=== PATIENT | female | born 1975 | race Caucasian/White ===

== ENCOUNTER → 2017-08-09 | Outpatient (CLI) | payer BC ==
--- NOTE | 2017-08-09 15:48 | RADIOLOGY REPORT (SQ) ---
EXAM DESCRIPTION: MRI LUMBAR SPINE WITHOUT COMPLETED DATE/TIME: 08/09/2017 2:57 pm REASON FOR STUDY: INTERVERTEBRAL DISC DISORDER; LUMBAR REGION (M51.16) M51.16 INTERVERTEBRAL DISC D ISORDERS W RADICULOPATHY, LUMBAR COMPARISON: None. TECHNIQUE: Sagittal and Axial imaging includes T1, T2, STIR and gradient echo sequences. Coronal T2/ HASTE imaging. LIMITATIONS: None. FINDINGS: VISUALIZED UPPER ABDOMEN: Limited evaluation. No acute or suspicious findings suggested. SEGMENTATION: No transitional anatomy. The lowest well-developed disc space is labeled L5-S1. ALIGNMENT: Anatomic. VERTEBRAE: Intact. BONE MARROW: Reactive endplate changes L5-S1. DISC SIGNAL: Loss of height and T2 signal L5-S1. POSTERIOR ELEMENTS: Generally intact. No pars defect evident. HARDWARE: None in the spine. CORD AND CONUS: Normal in size and signal intensity. Conus at the appropriate level. SOFT TISSUES: No aortic aneurysm seen. No bulky retroperitoneal adenopathy or mass. No paraspinal mas s or fluid. L1-L2: No significant spinal stenosis or exit foraminal stenosis. L2-L3: No significant spinal stenosis or exit foraminal stenosis. L3-L4: No significant spinal stenosis or exit foraminal stenosis. L4-L5: No significant spinal stenosis or exit foraminal stenosis. L5-S1: Large central disc extrusion L5-S1. Deviation of the intrathecal S1 roots and posterior so ening of the cord. LOWER THORACIC: Incompletely imaged. No stenosis seen. SACRUM: Visualized upper sacrum intact. OTHER: No other significant findings. IMPRESSION: Large central disc extrusion L5-S1 with deviation of the intrathecal S1 roots in posteri or flattening of the cord. TECHNICAL DOCUMENTATION: JOB ID: [id number] [employer]- All Rights Reserved
== END ==
LOC: RAD 14:08
PROVIDERS: ATTEND Physician Assistant
DX: M51.16 Intervertebral disc disorders with radiculopathy, lumbar region (principal)
CPT/HCPCS: 72148

== ENCOUNTER 2017-12-13 05:30 | Day surgery (SDC) | payer BC ==
[2017-12-06 09:57] LABS: ABSOLUTE EOSINOPHILS # (AUTO) 0.3 10^3/uL (0.0-0.6); ABSOLUTE LYMPHOCYTES (AUTO) 1.4 10^3/uL (0.5-4.7); ABSOLUTE MONOCYTES (AUTO) 0.6 10^3/uL (0.1-1.4); ABSOLUTE NEUT (AUTO) 4.8 10^3/uL (1.7-8.2); BASOPHILS % (AUTO) 0.6 % (0-2); EOSINOPHILS % (AUTO) 4.1 % (0-6); HEMATOCRIT 41.2 % (36.0-47.0); HEMOGLOBIN 14.2 g/dL (12.0-15.5); LYMPHOCYTES % (AUTO) 19.6 % (13-45); MEAN CORPUSCULAR HEMOGLOBIN 28.4 pg (27.0-33.4); MEAN CORPUSCULAR HGB CONC 34.4 g/dL (32.0-36.0); MEAN CORPUSCULAR VOLUME 83 fl (80-97); MONOCYTES % (AUTO) 8.4 % (3-13); PLATELET COUNT 351 10^3/uL (150-450); RED BLOOD COUNT 4.99 10^6/uL (3.72-5.28); RED CELL DISTRIBUTION WIDTH 12.7 % (11.5-14.0); SEGMENTED NEUTROPHILS % (AUTO) 67.3 % (42-78); TOTAL CELLS COUNTED % (AUTO) 100 %; WHITE BLOOD COUNT 7.1 10^3/uL (4.0-10.5)
[2017-12-06 10:23] LABS: ALANINE AMINOTRANSFERASE 39 U/L (9-52); ALBUMIN 4.3 g/dL (3.5-5.0); ALKALINE PHOSPHATASE 76 U/L (38-126); ANION GAP 10 (5-19); ASPARTATE AMINO TRANSFERASE 20 U/L (14-36); BILIRUBIN,DIRECT 0.4 mg/dL (0.0-0.4); BILIRUBIN,TOTAL 0.4 mg/dL (0.2-1.3); BLOOD UREA NITROGEN 17 mg/dL (7-20); CALCIUM 9.8 mg/dL (8.4-10.2); CARBON DIOXIDE 27 mmol/L (22-30); CHLORIDE 102 mmol/L (98-107); GLUCOSE 156 mg/dL (75-110); POTASSIUM 4.8 mmol/L (3.6-5.0); SODIUM 139.2 mmol/L (137-145); TOTAL PROTEIN 7.6 g/dL (6.3-8.2)
--- NOTE | 2017-12-06 11:04 | EKG REPORT ---
SEVERITY:- BORDERLINE ECG - SINUS RHYTHM BORDERLINE LEFT AXIS DEVIATION LOW VOLTAGE THROUGHOUT : Confirmed by: Felecia Cruz 06-Dec-2017 11:03:40
[~2017-12-13 05:30] MED LIST: CEFAZOLIN SODIUM 2 GM in NORMAL SALINE 100 ML IV PRN; LACTATED RINGERS 1000 ML IV PRN; LIDOCAINE 0.5% INJ-PF (5 MG/ML) 50 ML SDV SUBCUT PRN; NORMAL SALINE 1000 ML (RENAL PATIENTS) IV PRN
[2017-12-13] MEDS ORDERED: BACITRACIN INJ 50,000 UNIT VIAL ONE (06:37)
[2017-12-13] MEDS ORDERED: BUPIVACAINE INJ/PF LIPOSOME/PF 266 MG/20 ML SDV ONE (06:37)
[2017-12-13] MEDS ORDERED: FENTANYL CITRATE INJ/PF 250 MCG/5 ML AMPULE ONE ×2 (06:42→06:44)
[2017-12-13] MEDS ORDERED: DEXAMETHASONE SOD PHOSPHATE INJ 4 MG/1 ML VIAL ONE (06:42)
[2017-12-13] MEDS ORDERED: ONDANSETRON HCL INJ/PF 4 MG/2 ML SDV ONE (06:42)
[2017-12-13] MEDS ORDERED: MIDAZOLAM 2 MG/2 ML INJ ONE (06:42)
[2017-12-13] MEDS ORDERED: ACETAMINOPHEN 100 ML IV ONE (06:43)
[2017-12-13] MEDS ORDERED: PROPOFOL INJ 200 MG/20 ML VIAL IV ONE (06:43)
[2017-12-13] MEDS ORDERED: BUPIVACAINE HCL 0.5 % INJ/PF 30 ML SDV ONE (08:02)
[2017-12-13] MEDS ORDERED: MEPERIDINE HCL/PF INJ 25 MG/1 ML DISP.SYRIN IV PRN (08:03)
[2017-12-13] MEDS ORDERED: ONDANSETRON HCL INJ/PF 4 MG/2 ML SDV IV PRN (08:03)
[2017-12-13] MEDS ORDERED: DIPHENHYDRAMINE HCL 50 MG/ML VIAL IV PRN (08:03)
[2017-12-13] MEDS ORDERED: PROMETHAZINE HCL INJ 25 MG/1 ML VIAL IV PRN (08:03)
[2017-12-13] MEDS ORDERED: FENTANYL CITRATE INJ/PF 100 MCG/2 ML AMPUL IV PRN ×3 (08:03)
[2017-12-13] MEDS: FENTANYL CITRATE INJ/PF 100 MCG/2 ML AMPUL ONE ×2 (09:35→09:45)
[2017-12-13] MEDS ORDERED: PROMETHAZINE HCL INJ 25 MG/1 ML VIAL ONE (09:48)
[2017-12-13] MEDS ORDERED: DIPHENHYDRAMINE HCL 50 MG/ML VIAL ONE (10:07)
[2017-12-13] MEDS ORDERED: METHOCARBAMOL 1,000 MG in DEXTROSE 5%-WATER 100 ML IV ONE (10:30)
[2017-12-13] MEDS ORDERED: OXYCODONE-ACETAMINOPHEN 5-325 MG TABLET ONE (10:35)
--- NOTE | 2017-12-13 10:38 | RADIOLOGY REPORT (SQ) ---
EXAM DESCRIPTION: NO CHG FLUORO; L SPINE 2 VIEWS COMPLETED DATE/TIME: 12/13/2017 9:37 am REASON FOR STUDY: L5 PARTIAL LAMINECTOMY M48.061 SPINAL STENOSIS, LUMBAR REGION WITHOUT NEUROGENIC CL M51.16 INTERVERTEBRAL DISC DISORDERS W RADICULOPATHY, LUMBAR M51.36 OTHER INTERVERTEBRAL DISC DE GENERATION, LUMBAR REGION COMPARISON: None. FLUOROSCOPY TIME: 0.1 minutes 2 images saved to PACS. TECHNIQUE: Intra-operative images acquired during surgical procedure to evaluate progress. NUMBER OF IMAGES: 2 LIMITATIONS: None. FINDINGS: Metal probe overlies soft tissues posterior to L5-S1. IMPRESSION: IMAGE(S) OBTAINED DURING PROCEDURE. COMMENT: Quality ID [id number]: Final reports for procedures using fluoroscopy that document radiation exp osure indices, or exposure time and number of fluorographic images (if radiation exposure indices are not available) Please consult full operative report of the attending physician for description of the procedure. TECHNICAL DOCUMENTATION: JOB ID: [id number] [employer]- All Rights Reserved Reading location - IP/workstation name: [email or web address]
--- NOTE | 2017-12-13 10:38 | RADIOLOGY REPORT (SQ) ---
EXAM DESCRIPTION: NO CHG FLUORO; L SPINE 2 VIEWS COMPLETED DATE/TIME: 12/13/2017 9:37 am REASON FOR STUDY: L5 PARTIAL LAMINECTOMY M48.061 SPINAL STENOSIS, LUMBAR REGION WITHOUT NEUROGENIC CL M51.16 INTERVERTEBRAL DISC DISORDERS W RADICULOPATHY, LUMBAR M51.36 OTHER INTERVERTEBRAL DISC DE GENERATION, LUMBAR REGION COMPARISON: None. FLUOROSCOPY TIME: 0.1 minutes 2 images saved to PACS. TECHNIQUE: Intra-operative images acquired during surgical procedure to evaluate progress. NUMBER OF IMAGES: 2 LIMITATIONS: None. FINDINGS: Metal probe overlies soft tissues posterior to L5-S1. IMPRESSION: IMAGE(S) OBTAINED DURING PROCEDURE. COMMENT: Quality ID [id number]: Final reports for procedures using fluoroscopy that document radiation exp osure indices, or exposure time and number of fluorographic images (if radiation exposure indices are not available) Please consult full operative report of the attending physician for description of the procedure. TECHNICAL DOCUMENTATION: JOB ID: [id number] [email or web address]- All Rights Reserved Reading location - IP/workstation name: [email or web address]
[2017-12-13] MEDS ORDERED: DIAZEPAM 5 MG TABLET PO PRN (10:40)
[2017-12-13] MEDS ORDERED: ACETAMINOPHEN SOLN 325 MG/10.15 ML UDCUP PO PRN (10:41)
[2017-12-13] MEDS ORDERED: DIPHENHYDRAMINE HCL 25 MG CAPSULE PO PRN (10:41)
[2017-12-13] MEDS ORDERED: METHOCARBAMOL INJ/PF 1000 MG/10 ML SDV IV ONE (10:45)
[2017-12-13] MEDS ORDERED: SUCCINYLCHOLINE CHLORIDE INJ 200 MG/10 ML VIAL ONE (10:52)
[2017-12-13] MEDS ORDERED: ROCURONIUM BROMIDE INJ 50 MG/5 ML VIAL IV ONE (10:52)
--- NOTE | 2017-12-13 11:19 | OPERATIVE REPORT E ---
Operative Report NAME: JOLIE STEVENS : 1975 AGE: 42Y DATE OF SURGERY: 12/13/2017 ROOM: PREOPERATIVE DIAGNOSES: 1. L5-S1 severe stenosis. 2. L5-S1 radiculitis. 3. Degenerative disk disease. 4. Back pain. POSTOPERATIVE DIAGNOSES: 1. L5-S1 severe stenosis. 2. L5-S1 radiculitis. 3. Degenerative disk disease. 4. Back pain. OPERATION: 1. L5 partial laminectomy. 2. L5-S1 left-sided microdiskectomy. SURGEON: NICK ROSE M.D. SOFTBALL PLAYER: Reymundo Sheldon Physician [employer] Operator ANESTHESIA: General endotracheal intubation. ESTIMATED BLOOD LOSS: 100 mL. INDICATIONS: The patient is a 42-year-old female with significant left lower extremity numbness and tingling and some degree of weakness. After discussion with patient of the risks, indications, and alternatives to surgery and discussion of the nonsurgical options including epidural steroid injections and physical therapy, the patient wished to pursue the surgical intervention. Please note that the risks discussed with the patient include but are not limited to infection and blood loss, damage to nerves or blood vessels, the risk of dural tears, the risk of spinal headache, the risk of recurrent disk herniation, the risk of continued back pain as well as the need for further surgery. OPERATIVE TECHNIQUE: The patient is brought into the room and placed under anesthesia, placed in the prone position on the radiolucent table with Bird frame attachment. Middle and lower back are prepped and draped. After turning up the Bird frame, dual prep posterior interspaces, the skin is marked at L5, S1. After completion of prepping and draping, having received 2 g of Ancef, and having SCDs and a warm blanket placed on her, and appropriate surgical timeouts, 2 of them done, preoperatively, midline incision is carried down through skin measuring approximately 2 inches. Dissection is carried onto the dorsolumbar fascia. The lumbar dorsal fascia is incised in both sides of the sinus process down on the lamina of L5 and S1. A modified Johnson retractor is utilized to retract the soft tissues mediolaterally and the posterior interspaces are marked with a Tereso. The lateral C-arm with fluoroscopy is used to obtain a lateral image to verify the posterior interspace of L5-S1. After verification of that level, the spinous process of L5 is resected partially, and the microscope is brought in under the microscope through the assistance of Reymundo Sheldon. A partial laminectomy is performed decompressing the central canal and resecting the ligamentum flavum, and attention is paid to extension of the decompression laterally to the lateral recess, where the ligamentum flavum was decompressed all the way down to the lateral recess, and the dura was identified, and the nerve root was retracted medially over a significant sizable disk herniation. Under the microscope, a spinal needle was placed into the disk space following verification of the disk space, and upon verification with a [employer] 4 at the level disk space and lateral C-arm image, then annulotomy is performed and many small and large degenerative pieces of disk are resected. All the loose pieces are resected piecemeal until the dura is found to rest more ventrally. After irrigation of the disk space and removing some small degenerative pieces that floated out that were removed, then a Valsalva maneuver is performed by anesthesia and noting no cerebrospinal fluid leakage, no epidural bleeders, the wounds are irrigated with a liter of Bacitracin irrigation then the fascia is reapproximated with 0 Vicryl, subcutaneous with 2-0 Vicryl, and the skin with *------* 3-0 Monocryl closure. The wounds are dressed in benzoin, Steri-Strips, 4 x 4, and tape. *------* tissue and the deep muscles are infiltrated with 1.3% Exparel 20 mL mixed with 20 mL of 0.5% plain bupivacaine injected into the deep and superficial soft tissues. The wounds are dressed as mentioned above with benzoin, Steri-Strips, 4 x 4, and tape. The patient tolerated the procedure well. CONDITION: Stable. DISPOSITION: Recovery room. The patient's Bird frame was turned down. The patient is brought to the supine position, extubated, and brought to the recovery room. ESTIMATED BLOOD LOSS: 100 mL. Please note this procedure could not have been done without the assistance of RAINE Newell, working under the microscope and carrying out the diskectomy. DICTATING PHYSICIAN: NICK ROSE M.D. [id number] PHY#: [id number] ID: [id number] JOB#: [id number] ACCT: [id number] cc:NICK ROSE M.D. >
[2017-12-13 12:32] VITALS: BP 112/75
== END 2017-12-13 12:25 | disposition home or self-care (01) ==
LOC: OROUT 05:30
PROVIDERS: ATTEND Orthopaedic Surgery
DX: M48.061 Spinal stenosis, lumbar region without neurogenic claudication (principal); M51.16 Intervertebral disc disorders with radiculopathy, lumbar region; M51.36 Other intervertebral disc degeneration, lumbar region; M54.5 Low back pain; I49.9 Cardiac arrhythmia, unspecified; J45.909 Unspecified asthma, uncomplicated; E11.9 Type 2 diabetes mellitus without complications; Z79.84 Long term (current) use of oral hypoglycemic drugs; Z79.899 Other long term (current) drug therapy
CPT/HCPCS: 93005; 36415; 82962; 85025; 80053; 72100; 93010; 63030; J2250; J3490 ×3; J0690; J1100; J1200; J3010 ×2; J2800; J2550; J0330; J2405; J2704; J0131; C9290; 630

== ENCOUNTER → 2018-09-13 | Outpatient (CLI) | payer BC ==
[2018-09-13 08:53] LABS: ALANINE AMINOTRANSFERASE 22 U/L (9-52); ALBUMIN 4.2 g/dL (3.5-5.0); ALKALINE PHOSPHATASE 133 U/L (38-126); ANION GAP 10 (5-19); ASPARTATE AMINO TRANSFERASE 16 U/L (14-36); BILIRUBIN,DIRECT 0.3 mg/dL (0.0-0.4); BILIRUBIN,TOTAL 0.4 mg/dL (0.2-1.3); BLOOD UREA NITROGEN 18 mg/dL (7-20); CALCIUM 9.2 mg/dL (8.4-10.2); CARBON DIOXIDE 24 mmol/L (22-30); CHLORIDE 100 mmol/L (98-107); CHOLESTEROL 210.42 mg/dL (0-200); GLUCOSE 331 mg/dL (75-110); POTASSIUM 4.8 mmol/L (3.6-5.0); SODIUM 133.7 mmol/L (137-145); TOTAL PROTEIN 7.2 g/dL (6.3-8.2); TRIGLYCERIDES 123 mg/dL (<150)
[2018-09-13 09:04] LABS: DIRECT LDL 139 mg/dL (<100)
== END ==
LOC: LAB 08:21
PROVIDERS: ATTEND Physician Assistant
DX: E11.9 Type 2 diabetes mellitus without complications (principal); R00.0 Tachycardia, unspecified
CPT/HCPCS: 36415; 80048; 80061; 80076; 83036

== ENCOUNTER → 2018-10-09 | Outpatient (CLI) | payer BC ==
[2018-10-09 09:50] LABS: ANION GAP 11 (5-19); BLOOD UREA NITROGEN 18 mg/dL (7-20); CALCIUM 9.3 mg/dL (8.4-10.2); CARBON DIOXIDE 23 mmol/L (22-30); CHLORIDE 98 mmol/L (98-107); POTASSIUM 4.6 mmol/L (3.6-5.0); SODIUM 131.5 mmol/L (137-145)
[2018-10-09 10:02] LABS: GLUCOSE 400 mg/dL (75-110)
== END ==
LOC: LAB 09:14
PROVIDERS: ATTEND Physician Assistant
DX: E11.9 Type 2 diabetes mellitus without complications (principal); I10 Essential (primary) hypertension
CPT/HCPCS: 36415; 80048

== ENCOUNTER → 2019-01-23 | Outpatient (CLI) | payer BC | LOC: LAB 10:23 | PROVIDERS: ATTEND Physician Assistant | DX: Z53.8 Procedure and treatment not carried out for other reasons (principal) ==

== ENCOUNTER → 2019-02-05 | Outpatient (CLI) | payer BC ==
[2019-02-05 11:39] LABS: ALANINE AMINOTRANSFERASE 21 U/L (9-52); ALKALINE PHOSPHATASE 84 U/L (38-126); ANION GAP 11 (5-19); ASPARTATE AMINO TRANSFERASE 13 U/L (14-36); BILIRUBIN,DIRECT 0.3 mg/dL (0.0-0.4); BILIRUBIN,TOTAL 0.4 mg/dL (0.2-1.3); BLOOD UREA NITROGEN 18 mg/dL (7-20); CALCIUM 9.7 mg/dL (8.4-10.2); CARBON DIOXIDE 23 mmol/L (22-30); CHLORIDE 102 mmol/L (98-107); GLUCOSE 256 mg/dL (75-110); POTASSIUM 5.1 mmol/L (3.6-5.0); SODIUM 136.4 mmol/L (137-145); TOTAL PROTEIN 7.2 g/dL (6.3-8.2)
== END ==
LOC: LAB 09:31
PROVIDERS: ATTEND Physician Assistant
DX: E11.9 Type 2 diabetes mellitus without complications (principal); I10 Essential (primary) hypertension; R94.5 Abnormal results of liver function studies
CPT/HCPCS: 36415; 80048; 80076; 83036

== ENCOUNTER → 2020-07-07 | Outpatient (CLI) | payer BC ==
[2020-07-07 09:37] LABS: ALBUMIN 4.3 g/dL (3.5-5.0); ALKALINE PHOSPHATASE 85 U/L (38-126); ANION GAP 12 (5-19); ASPARTATE AMINO TRANSFERASE 15 U/L (14-36); BILIRUBIN,DIRECT 0.3 mg/dL (0.0-0.4); BILIRUBIN,TOTAL 0.5 mg/dL (0.2-1.3); BLOOD UREA NITROGEN 22 mg/dL (7-20); CALCIUM 9.6 mg/dL (8.4-10.2); CARBON DIOXIDE 25 mmol/L (22-30); CHLORIDE 102 mmol/L (98-107); CHOLESTEROL 125.24 mg/dL (0-200); GLUCOSE 143 mg/dL (75-110); TOTAL PROTEIN 7.3 g/dL (6.3-8.2); TRIGLYCERIDES 116 mg/dL (<150)
[2020-07-07 09:48] LABS: DIRECT LDL 49 mg/dL (<100)
== END ==
LOC: OD 08:28
PROVIDERS: ATTEND Physician Assistant
DX: E11.9 Type 2 diabetes mellitus without complications (principal); E78.5 Hyperlipidemia, unspecified; I10 Essential (primary) hypertension; Z79.899 Other long term (current) drug therapy
CPT/HCPCS: 36415; 80048; 80061; 80076

== ENCOUNTER → 2020-09-26 | Outpatient (CLI) | payer BC ==
[2020-09-26 12:36] LABS: ALBUMIN 4.3 g/dL (3.5-5.0); ALKALINE PHOSPHATASE 110 U/L (38-126); ANION GAP 7 (5-19); ASPARTATE AMINO TRANSFERASE 15 U/L (14-36); BILIRUBIN,DIRECT 0.2 mg/dL (0.0-0.4); BILIRUBIN,TOTAL 0.8 mg/dL (0.2-1.3); BLOOD UREA NITROGEN 15 mg/dL (7-20); CALCIUM 9.6 mg/dL (8.4-10.2); CARBON DIOXIDE 30 mmol/L (22-30); CHLORIDE 95 mmol/L (98-107); CHOLESTEROL 188.72 mg/dL (0-200); GLUCOSE 269 mg/dL (75-110); POTASSIUM 4.8 mmol/L (3.6-5.0); TOTAL PROTEIN 7.4 g/dL (6.3-8.2); TRIGLYCERIDES 78 mg/dL (<150)
[2020-09-26 12:47] LABS: DIRECT LDL 114 mg/dL (<100)
== END ==
LOC: OD 10:13
PROVIDERS: ATTEND Physician Assistant
DX: E11.9 Type 2 diabetes mellitus without complications (principal); I10 Essential (primary) hypertension; E78.5 Hyperlipidemia, unspecified; Z79.899 Other long term (current) drug therapy
CPT/HCPCS: 36415; 80048; 80061; 80076; 83036